=== PATIENT | female | born 1990 | race Asian ===

== ENCOUNTER → 2016-08-06 | Outpatient (REF) | LOC: WSOH 14:01 | DX: Z01.83 Encounter for blood typing (principal) ==

== ENCOUNTER 2023-05-07 11:04 | Outpatient (RCR) | payer OTHER | END 2023-05-28 | disposition home or self-care (01) | LOC: WSOH | DX: S60.413D Abrasion of left middle finger, subsequent encounter (principal); W53.11XD Bitten by rat, subsequent encounter; I10 Essential (primary) hypertension; K21.9 Gastro-esophageal reflux disease without esophagitis; L30.9 Dermatitis, unspecified; Y99.0 Civilian activity done for income or pay ==